=== PATIENT | female | born 1940 ===

== ENCOUNTER 2018-03-22 13:22 | Outpatient (CLI) | payer OTHER | END 2018-03-22 13:30 | disposition home or self-care (01) | LOC: MAMO-SONO 13:22 | DX: Z12.31 Encounter for screening mammogram for malignant neoplasm of breast (principal); Z87.898 Personal history of other specified conditions; N64.89 Other specified disorders of breast; R10.84 Generalized abdominal pain; Z01.818 Encounter for other preprocedural examination ==

== ENCOUNTER 2018-04-15 08:06 | Inpatient (IN) | payer OTHER ==
[~2018-04-15] VITALS: Ht 152.4 cm; Wt 68.9 kg
[~2018-04-15 08:06] MED LIST: COZAAR100 MG PO; LOTREL 5-20 MG1 CAP PO; METOPROLOL SUC100 MG PO; SIMVASTATIN10 MG PO
== END 2018-04-18 08:07 | DRG 743 ==
LOC: O/R 04-16 06:00 → RECOVERY 04-16 07:00 → OB/GYN 04-16 14:01 → RECOVERY 04-16 15:51 → OB/GYN 04-18 08:07
PROVIDERS: Obstetrics & Gynecology
PROC: 0JQC0ZZ Repair Pelvic Region Subcutaneous Tissue and Fascia, Open Approach (ICD-10-PCS; 2018-04-16)
PROC: 0JQC0ZZ Repair Pelvic Region Subcutaneous Tissue and Fascia, Open Approach (ICD-10-PCS; 2018-04-16)
PROC: 0UT97ZZ Resection of Uterus, Via Natural or Artificial Opening (ICD-10-PCS; principal; 2018-04-16 07:00)
DX: N80.0 Endometriosis of uterus (principal); N81.3 Complete uterovaginal prolapse; N72 Inflammatory disease of cervix uteri

== ENCOUNTER 2019-06-27 13:58 | Outpatient (CLI) | payer OTHER | END 2019-06-27 14:04 | disposition home or self-care (01) | LOC: RAD 13:58 | DX: M13.842 Other specified arthritis, left hand (principal); M13.841 Other specified arthritis, right hand ==

== ENCOUNTER → 2019-09-08 | Outpatient (CLI) | payer OTHER | END | disposition home or self-care (01) | LOC: RAD 15:03 | DX: S62.12 Fracture of lunate [semilunar] (principal) ==